=== PATIENT | male | born 1935 | race Caucasian/White ===

== ENCOUNTER 2016-12-12 16:48 | Emergency (ER) | payer MEDICARE ==
[~2016-12-12] VITALS: Ht 177.8 cm; Wt 83.9 kg
[2016-12-12 18:49] VITALS: BP 117/80
== END 2016-12-12 19:17 | disposition home or self-care (01) ==
LOC: ER 17:14
DX: R21 Rash and other nonspecific skin eruption (principal); E11.9 Type 2 diabetes mellitus without complications; I10 Essential (primary) hypertension; E78.00 Pure hypercholesterolemia, unspecified; Z88.1 Allergy status to other antibiotic agents

== ENCOUNTER → 2018-08-17 | Outpatient (CLI) | payer MEDICARE | END | disposition home or self-care (01) | LOC: Rad HDHVI 08:59 | PROVIDERS: ATTEND Internal Medicine | DX: I70.0 Atherosclerosis of aorta (principal); M47.814 Spondylosis without myelopathy or radiculopathy, thoracic region | CPT/HCPCS: 71046 ==

== ENCOUNTER → 2018-08-19 | Outpatient (CLI) | payer MEDICARE | END | disposition home or self-care (01) | LOC: Rad HDHVI 15:30 | PROVIDERS: ATTEND Internal Medicine | DX: I10 Essential (primary) hypertension (principal); I25.10 Atherosclerotic heart disease of native coronary artery without angina pectoris; I25.2 Old myocardial infarction | CPT/HCPCS: 93306 ==

== ENCOUNTER → 2018-08-31 | Outpatient (CLI) | payer MEDICARE ==
[~2018-08-31] MED LIST: IOHEXOL 350 MG/ML 100ML IJ ONE; METOPROLOL TARTRATE 1MG/1ML-5ML VIAL IV ONE; NITROGLYCERIN 0.4 MG SL TAB SL ONE
--- NOTE | 2018-08-31 11:45 | NUR ---
PT. TO CLINIC FOR CTA OF CORONARIES PER MD ORDER. 18GA. HL ESTABLISHED RT AC, LABS DRAWN AND SENT FOR STAT CREAT. PT. WITH HX. OF DM AND ON METFORMIN . INSTRUCTION GIVEN FOR PT. TO HOLD THIS MED FOR 48 HRS POST PROCEDURE. WITH PT. FOR SUPPORT. VSS, AOX4 WITH NO C/O.
[2018-08-31 11:50] VITALS: BP 147/80
--- NOTE | 2018-08-31 12:30 | NUR ---
CALL TO LAB FOR STAT LAB RESULTS PENDING. PT. UPDATED ON STATUS.
--- NOTE | 2018-08-31 13:25 | NUR ---
LAB RESULTS COMPLETE. PT. TO CT. 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
--- NOTE | 2018-08-31 13:30 | NUR ---
MEDS: LOPRESSOR 5 MG SIVP GIVEN PER PROTOCOL. SR 66 WITH NO ECTOPY.
--- NOTE | 2018-08-31 13:35 | NUR ---
MEDS: NTG 0.4MG SL PER CTA PROTOCOL.
--- NOTE | 2018-08-31 13:52 | NUR ---
PT. BACK TO CLINIC POST CTA. TOLERATED PROCEDURE WELL, WITH NO C/O.
[2018-08-31 14:20] VITALS: BP 150/76
--- NOTE | 2018-08-31 14:20 | NUR ---
IV removal IV DC'd with sterile technique, catheter fully intact. Pressure dressing applied to site. Patient tolerated procedure well. Discharged with aftercare instructions per MD. NOTE: PT. TO HOLD METFORMIN X48 HRS PER PROTOCOL. INCREASE WATER INTAKE FOR NEXT 24 HRS.
== END | disposition home or self-care (01) ==
LOC: Rad HDHVI 11:37
PROVIDERS: ATTEND Internal Medicine Cardiovascular Disease
DX: I25.10 Atherosclerotic heart disease of native coronary artery without angina pectoris (principal); R94.4 Abnormal results of kidney function studies; I10 Essential (primary) hypertension; I70.0 Atherosclerosis of aorta; I25.2 Old myocardial infarction
CPT/HCPCS: 36415; 82565; 96374; G0463; Q9967

== ENCOUNTER → 2019-01-24 | Outpatient (CLI) | payer MEDICARE ==
[~2019-01-24] MED LIST changes: +ASPI325T4 PO; +ATOR1TAB PO; +GLIM2TAB33 PO; -IOHEXOL 350 MG/ML 100ML IJ ONE; +LISI-646 PO; +METO-169 PO; -METOPROLOL TARTRATE 1MG/1ML-5ML VIAL IV ONE; -NITROGLYCERIN 0.4 MG SL TAB SL ONE; +OMEP20TA PO
[2019-01-24 09:45] VITALS: BP 134/73
[2019-01-24 10:05] VITALS: BP 139/95
--- NOTE | 2019-01-24 10:05 | NUR ---
PRE-OP FOR PACER GENERATOR CHANGE FOR 01/26/19 FOR PACER END OF LIFE. Pre-Op Discharge Summary: See e-MAR for any medications given for this visit. Pre-op orders received and carried out per MD of EKG, LABS and chest xrays. Patient given a copy of EKG with instructions to go to H out patient for further follow up care.
[2019-01-24 12:09] LABS: BUN/Creatinine Ratio 22.4; Calcium 8.6 mg/dL (8.5-10.1); Potassium 4.7 mmol/L (3.5-5.1)
[2019-01-24 12:15] LABS: INR 0.95 (0.9-1.15); Partial Thromboplastin Time 26.2 sec (23.64-32.05)
[2019-01-24 12:21] LABS: Basophils # (auto) 0 uL; Basophils % (auto) 0.8 % (0.0-2.0); Eosinophils # (auto) 0.1 uL; Eosinophils % (auto) 1.6 % (0.0-7.0); Hematocrit 41.3 % (41.0-53.0); Hemoglobin 13.5 g/dL (13.5-17.5); Lymphocytes # (auto) 1.2 uL; Lymphocytes % (auto) 21.6 % (10.0-50.0); Mean Corpuscular Hemoglobin 30.6 pg (28.0-32.0); Mean Corpuscular Hgb Conc. 32.6 g/dL (32.0-36.0); Mean Corpuscular Volume 93.7 fL (80.0-100.0); Monocytes # (auto) 0.6 uL; Monocytes % (auto) 11.2 % (0.0-12.0); Neutrophils # (auto) 3.5 uL; Neutrophils % (auto) 64.8 % (37.0-80.0); Nucleated Red Blood Cells % 0.1 %; Platelet Count (auto) 280 10^3/uL (140-450); Red Blood Cells 4.41 10^6/uL (4.5-5.90); Red Cell Distribution Width 13.9 % (11.8-14.3); White Blood Cell 5.4 10^3/uL (4.4-10.8)
== END | disposition home or self-care (01) ==
LOC: Rad HDHVI 09:33
PROVIDERS: ATTEND Internal Medicine
DX: Z01.812 Encounter for preprocedural laboratory examination (principal); D64.9 Anemia, unspecified; R79.1 Abnormal coagulation profile; I10 Essential (primary) hypertension; R94.31 Abnormal electrocardiogram [ECG] [EKG]
CPT/HCPCS: 36415; 71046; 80048; 85025; 85610; 85730; 93005; G0463

== ENCOUNTER 2019-01-26 09:35 | Day surgery (SDC) | payer MEDICARE ==
[~2019-01-26] VITALS: Ht 177.8 cm; Wt 83.9 kg
[2019-01-26] MEDS ORDERED: LISI-646 PO (10:17)
[2019-01-26] MEDS ORDERED: ATOR1TAB PO (10:17)
[2019-01-26] MEDS ORDERED: ASPI325T4 PO (10:17)
[2019-01-26] MEDS ORDERED: GLIM2TAB33 PO (10:17)
[2019-01-26] MEDS ORDERED: OMEP20TA PO (10:17)
[2019-01-26] MEDS ORDERED: METO-169 PO (10:17)
[2019-01-26] MEDS ORDERED: fentaNYL CITRATE 100 MCG/2 ML VL ONE (16:05)
[2019-01-26] MEDS ORDERED: MIDAZOLAM HCL 1MG/1ML-2 ML VIAL ONE (16:05)
[2019-01-26] MEDS ORDERED: LIDOCAINE 2%HCL (LOCAL ANESTH.) INJ 20ML MDV ONE (16:06)
[2019-01-26] MEDS ORDERED: VANCOMYCIN HCL 1000 MG VL ONE (16:13)
[2019-01-26] MEDS ORDERED: VANCOMYCIN 1GM/250ML 250 ML IV ONE (16:13)
[2019-01-26] MEDS ORDERED: HYDROcodone-ACET 5/325MG TAB PO PRN (17:15)
[2019-01-26] MEDS ORDERED: ACETAMINOPHEN 325 MG TAB PO PRN (17:15)
== END 2019-01-26 18:05 | disposition home or self-care (01) ==
LOC: CATH 09:35
PROVIDERS: ATTEND Internal Medicine
DX: Z45.010 Encounter for checking and testing of cardiac pacemaker pulse generator [battery] (principal); I10 Essential (primary) hypertension; E11.9 Type 2 diabetes mellitus without complications; E78.00 Pure hypercholesterolemia, unspecified; E78.5 Hyperlipidemia, unspecified; I73.9 Peripheral vascular disease, unspecified; I25.2 Old myocardial infarction; Z95.818 Presence of other cardiac implants and grafts; Z87.891 Personal history of nicotine dependence; Z88.1 Allergy status to other antibiotic agents; Z79.84 Long term (current) use of oral hypoglycemic drugs; Z79.899 Other long term (current) drug therapy; Z79.82 Long term (current) use of aspirin; Z98.890 Other specified postprocedural states
CPT/HCPCS: 33228; C1785; J2250; J3010; J3370; J7030; 99152

== ENCOUNTER → 2021-04-17 | Outpatient (CLI) | payer MEDICARE ==
[~2021-04-17] VITALS: Ht 177.8 cm; Wt 86.2 kg
[~2021-04-17] MED LIST changes: +ADENOSINE 72 MG in GIVE UN-DILUTED 0 ML IV ONE; +ADENOSINE 90 MG/30 ML INJ IV ONE; +ATOR-47 PO; -ATOR1TAB PO; -LISI-646 PO; +LISI20TA28 PO; -METO-169 PO; +METO-289 PO
== END | disposition home or self-care (01) ==
LOC: Rad HDHVI 08:27
PROVIDERS: ATTEND Internal Medicine
DX: I49.8 Other specified cardiac arrhythmias (principal); I10 Essential (primary) hypertension; E11.9 Type 2 diabetes mellitus without complications; E78.5 Hyperlipidemia, unspecified; I25.2 Old myocardial infarction; Z95.0 Presence of cardiac pacemaker
CPT/HCPCS: 78452; 93005; 96374; 96375; A9500; J0153

== ENCOUNTER → 2021-11-13 | Outpatient (CLI) | payer MEDICARE ==
[~2021-11-13] MED LIST changes: -ADENOSINE 72 MG in GIVE UN-DILUTED 0 ML IV ONE; -ADENOSINE 90 MG/30 ML INJ IV ONE
[2021-11-13 10:16] LABS: Basophils # (auto) 0.1 10 ^3/uL (0-0.2); Basophils % (auto) 1.8 % (0.0-2.0); Eosinophils # (auto) 0.1 10 ^3/uL (0-0.8); Eosinophils % (auto) 2.3 % (0.0-7.0); Hematocrit 38.5 % (41.0-53.0); Lymphocytes # (auto) 1.4 10 ^3/uL (0.4-5.4); Lymphocytes % (auto) 24.7 % (10.0-50.0); Mean Corpuscular Hemoglobin 30.1 pg (28.0-32.0); Mean Corpuscular Hgb Conc. 33.7 g/dL (32.0-36.0); Mean Corpuscular Volume 89.3 fL (80.0-100.0); Monocytes # (auto) 0.6 10 ^3/uL (0-1.3); Monocytes % (auto) 9.8 % (0.0-12.0); Neutrophils # (auto) 3.5 10 ^3/uL (1.6-8.6); Neutrophils % (auto) 61.4 % (37.0-80.0); Nucleated Red Blood Cells % 0.2 %; Red Blood Cells 4.32 10^6/uL (4.5-5.90); Red Cell Distribution Width 13.9 % (11.8-14.3); White Blood Cell 5.7 10^3/uL (4.4-10.8)
[2021-11-13 10:29] LABS: Urine Blood Negative /uL (Negative); Urine Specific Gravity 1.023 (1.001-1.035)
[2021-11-13 10:32] LABS: Albumin 3.3 g/dL (3.4-5.0); Calcium 8.6 mg/dL (8.5-10.1); Potassium 4.5 mmol/L (3.5-5.1)
[2021-11-13 10:37] LABS: BUN/Creatinine Ratio 17.1; Bilirubin, Total 0.4 mg/dL (0.2-1.0); Total Protein 6.7 g/dL (6.4-8.2)
[2021-11-13 10:52] LABS: Free T4 (Free Thyroxine) 1.2 ng/dL (0.89-1.76)
[2021-11-13 12:22] LABS: Prostate Specific Antigen 3.45 ng/mL (0.0-4.0)
== END | disposition home or self-care (01) ==
LOC: LAB 08:39
PROVIDERS: ATTEND Internal Medicine
DX: D51.3 Other dietary vitamin B12 deficiency anemia (principal); D64.9 Anemia, unspecified; E11.9 Type 2 diabetes mellitus without complications; E55.9 Vitamin D deficiency, unspecified; I10 Essential (primary) hypertension; R00.2 Palpitations; R53.1 Weakness; R30.0 Dysuria; C61 Malignant neoplasm of prostate
CPT/HCPCS: 36415; 80053; 80061; 81003; 82607; 83036; 84153; 84403; 84439; 84443; 85025

== ENCOUNTER → 2022-04-07 | Outpatient (CLI) | payer MEDICARE | END | disposition home or self-care (01) | LOC: Rad HDHVI 13:57 | PROVIDERS: ATTEND Internal Medicine Cardiovascular Disease | DX: I10 Essential (primary) hypertension (principal); E78.5 Hyperlipidemia, unspecified | CPT/HCPCS: 93880 ==